=== PATIENT | female | born 2000 | race American Indian/Alaskan Native ===

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

== ENCOUNTER 2020-05-14 17:35 | Emergency (ER) | payer SELFPAY ==
--- NOTE | 2020-05-14 18:07 | Emergency Department Report ---
HPI - General Chief Complaint: Abdominal Pain Time Seen by Provider: 05/14/20 17:55 - HPI HPI: Room 34 The patient is a 19-year-old female presenting with a chief complaint of abdominal pain. Patient states she has suffered from "intestinal worms" since age 6 or 7. Patient states she grew up in [address] 5 [address] ago. The patient states for the past year she has again noticed worms in her stool this has been causing sharp lower abdominal pain intermittently for 1 year. The patient states this pain worsened over the past 2 weeks prompted her to come to the emergency department. Patient states she has not sought medical attention for the worms in her stool for the past year. ED Past Medical Hx - Surgical History Past Surgical History?: No Hx Internal Defibrillator: No - Family History Family history: no significant - Social History Smoking Status: Never Smoker Substance Use Type: None (Denies illicit drug use) - Medications Home Medications: Home Medications Medication Instructions Recorded Confirmed Last Taken Type Nitrofurantoin Monohyd/M-Cryst 100 mg PO BID #20 capsule 02/08/18 Unknown Rx [Macrobid 100 mg Capsule] Phenazopyridine [Pyridium] 100 mg PO TID #9 tab 02/08/18 Unknown Rx Albendazole [Albenza] 400 mg PO QDAY #14 tablet 05/14/20 Unknown Rx traMADoL [Ultram] 50 mg PO Q6HR PRN #10 tablet 05/14/20 Unknown Rx ED Review of Systems ROS: Stated complaint: ABD PAIN/ABD WORMS Other details as noted in HPI Constitutional: no symptoms reported Eyes: denies: eye pain ENT: denies: throat pain Respiratory: no symptoms reported Cardiovascular: denies: chest pain Endocrine: no symptoms reported Gastrointestinal: abdominal pain Genitourinary: denies: dysuria Musculoskeletal: denies: back pain Neurological: denies: headache Physical Exam - Physical Exam Vital Signs: Vital Signs 05/14/20 17:39 Temperature 97.8 F Pulse Rate 85 Respiratory 20 Rate Blood Pressure 122/66 O2 Sat by Pulse 100 Oximetry Physical Exam: GENERAL: The patient is well-developed well-nourished female lying on stretcher not appearing to be in acute distress. [] HEENT: Normocephalic. Atraumatic. Extraocular motions are intact. Patient has moist mucous membranes. NECK: Supple. Trachea midline CHEST/LUNGS: Clear to auscultation. There is no respiratory distress noted. HEART/CARDIOVASCULAR: Regular. There is no tachycardia. There is no gallop rub or murmur. ABDOMEN: Abdomen is soft, nontender. Patient has normal bowel sounds. There is no abdominal distention. SKIN: There is no rash. There is no edema. There is no diaphoresis. NEURO: The patient is awake, alert, and oriented. The patient is cooperative. The patient has no focal neurologic deficits. The patient has normal speech MUSCULOSKELETAL:There is no evidence of acute injury. ED Course Vital Signs 05/14/20 17:39 Temperature 97.8 F Pulse Rate 85 Respiratory 20 Rate Blood Pressure 122/66 O2 Sat by Pulse 100 Oximetry ED Medical Decision Making - Lab Data Result diagrams: 05/14/20 17:49 05/14/20 17:49 - Radiology Data Radiology results: report reviewed (CT abdomen pelvis), image reviewed (CT abdomen pelvis) [facility] [address] [place] [address] Cat Scan Report Signed Patient: HIRAM BALDERAS MR#: [id number] 5 : 2000 Acct:[id number] Age/Sex: 19 / F ADM Date: 05/14/20 Loc: ED Attending Dr: Ordering Physician: RODRI TAYLOR MD Date of Service: 05/14/20 Procedure(s): CT abdomen pelvis w con Accession Number(s): [id number] cc: RODRI TAYLOR MD CT ABDOMEN AND PELVIS WITH CONTRAST INDICATION / CLINICAL INFORMATION: Lower abdominal pain, "worms" in stool for 1 year. TECHNIQUE: Axial CT images were obtained through the abdomen and pelvis after 100 cc of Omnipaque [address] scans at this location are performed using CT dose reduction for ALARA by means of automated exposure control. COMPARISON: None available. FINDINGS: LOWER CHEST: No significant abnormality. LIVER: No significant abnormality. GALLBLADDER: No significant abnormality. BILE DUCTS: No significant abnormality. PANCREAS: No significant abnormality. SPLEEN: No significant abnormality. ADRENALS: No significant abnormality. RIGHT KIDNEY and URETER: No significant abnormality. LEFT KIDNEY and URETER: No significant abnormality. STOMACH and SMALL BOWEL: No significant abnormality. COLON: There is a large amount of stool in colon raising possibility of constipation. APPENDIX: No significant abnormality. PERITONEUM: No free fluid. No free air. No fluid collection. LYMPH NODES: No significant adenopathy. AORTA and ARTERIES: No significant abnormality. IVC and VEINS: No significant abnormality. URINARY BLADDER: No significant abnormality. REPRODUCTIVE ORGANS: No significant abnormality. ADDITIONAL FINDINGS: None. SKELETAL SYSTEM: No acute abnormality. IMPRESSION: 1. There is large amount stool in the colon raising the possibility of constipation. 2. There is no obstruction, inflammation, or free air. There are no abnormal fluid collections. Signer Name: Sam Hanks MD Signed: 05/14/2020 7:58 PM Workstation Name: [id number] Transcribed By: Dictated By: Sam Hanks MD Electronically Authenticated By: Sam Hanks MD Signed Date/Time: 05/14/201957 DD/ 53 TD/TT: - Differential Diagnosis Pinworms, anxiety, gastritis Critical care attestation.: If time is entered above; I have spent that time in minutes in the direct care of this critically ill patient, excluding procedure time. ED Disposition Clinical Impression: Pinworms, Abdominal pain Disposition: DC-01 TO HOME OR SELFCARE Is pt being admited?: No Does the pt Need Aspirin: No Condition: Stable Instructions: Abdominal Pain (ED) Additional Instructions: Return to the emergency department should you develop worsening symptoms, inability to tolerate food or liquids, high fever or any other concerns Prescriptions: Albendazole [Albenza] 400 mg PO QDAY #14 tablet traMADoL [Ultram] 50 mg PO Q6HR PRN #10 tablet PRN Reason: Pain Referrals: PRIMARY MD BENSON [Primary Care Provider] - 3-5 Days ARI VAZQUEZ MD [Staff Physician] - 3-5 Days (Dr. Vazquez is a patient care coordinator. Please follow-up with him for further evaluation)
[2020-05-14 18:23] LABS: Basophils % (Auto) 0.4 % (0.0-1.8); Eosinophils % (Auto) 0.8 % (0.0-4.3); Hematocrit 40.3 % (30.3-42.9); Hemoglobin 13.6 gm/dl (10.1-14.3); Lymphocytes # (Auto) 1.3 K/mm3 (1.2-5.4); Lymphocytes % (Auto) 39.7 % (13.4-35.0); Mean Corpuscular HGB Conc 34 % (30-34); Mean Corpuscular Volume 97 fl (79-97); Monocytes # (Auto) 0.2 K/mm3 (0.0-0.8); Monocytes % (Auto) 7.6 % (0.0-7.3); Platelet Count 235 K/mm3 (140-440); Red Blood Count 4.15 M/mm3 (3.65-5.03); Red Cell Distribution Width 13.1 % (13.2-15.2)
[2020-05-14 18:47] LABS: Alanine Aminotransferase 11 units/L (7-56); Albumin 4.6 g/dL (3.9-5); Blood Urea Nitrogen 9 mg/dL (7-17); Calcium 9.2 mg/dL (8.4-10.2); Hemolysis Index 7
[2020-05-14 18:48] LABS: BUN/Creatinine Ratio 15
[2020-05-14 19:14] LABS: Bilirubin,Urine NEG (Negative); Blood,Urine NEG (Negative); Color,Urine Yellow (Yellow); Protein,Urine <15 mg/dL mg/dL (Negative); Urobilinogen,Urine < 2.0 mg/dL (<2.0)
[2020-05-14 19:32] LABS: Mucus,Urine FEW /HPF
--- NOTE | 2020-05-14 20:02 | Cat Scan Report ---
CT ABDOMEN AND PELVIS WITH CONTRAST INDICATION / CLINICAL INFORMATION: Lower abdominal pain, "worms" in stool for 1 year. TECHNIQUE: Axial CT images were obtained through the abdomen and pelvis after 100 cc of Omnipaque [address] scans at this location are performed using CT dose reduction for ALARA by means of automat ed exposure control. COMPARISON: None available. FINDINGS: LOWER CHEST: No significant abnormality. LIVER: No significant abnormality. GALLBLADDER: No significant abnormality. BILE DUCTS: No significant abnormality. PANCREAS: No significant abnormality. SPLEEN: No significant abnormality. ADRENALS: No significant abnormality. RIGHT KIDNEY and URETER: No significant abnormality. LEFT KIDNEY and URETER: No significant abnormality. STOMACH and SMALL BOWEL: No significant abnormality. COLON: There is a large amount of stool in colon raising possibility of constipation. APPENDIX: No significant abnormality. PERITONEUM: No free fluid. No free air. No fluid collection. LYMPH NODES: No significant adenopathy. AORTA and ARTERIES: No significant abnormality. IVC and VEINS: No significant abnormality. URINARY BLADDER: No significant abnormality. REPRODUCTIVE ORGANS: No significant abnormality. ADDITIONAL FINDINGS: None. SKELETAL SYSTEM: No acute abnormality. IMPRESSION: 1. There is large amount stool in the colon raising the possibility of constipation. 2. There is no obstruction, inflammation, or free air. There are no abnormal fluid collections. Signer Name: Sam Hanks MD Signed: 05/14/2020 7:58 PM Workstation Name: [id number]
[2020-05-14 20:20] VITALS: BP 103/54
== END 2020-05-14 20:19 | disposition home or self-care (01) ==
LOC: ED 17:35
DX: B80 Enterobiasis (principal); R10.9 Unspecified abdominal pain; Z79.899 Other long term (current) drug therapy
CPT/HCPCS: 36415; 74177; 80053; 81001; 83690; 84702; 85025; 99284; Q9967